=== PATIENT | female | born 1965 | race Hispanic/Latino ===

== ENCOUNTER 2021-10-12 19:38 | Emergency (ER) | payer BC ==
[~2021-10-12] VITALS: Ht 154.9 cm; Wt 80.7 kg
== END 2021-10-12 23:46 | disposition home or self-care (01) ==
LOC: FSED 20:30
DX: S49.91XA Unspecified injury of right shoulder and upper arm, initial encounter (principal); W22.8XXA Striking against or struck by other objects, initial encounter; Z88.8 Allergy status to other drugs, medicaments and biological substances
CPT/HCPCS: 99282